=== PATIENT | male | born 1965 | race Caucasian/White ===

== ENCOUNTER 2020-06-06 08:40 | Emergency (ER) | payer SELFPAY ==
[~2020-06-06] VITALS: Ht 185.4 cm; Wt 70.3 kg
[2020-06-06 09:12] VITALS: BP 133/89
== END 2020-06-06 11:02 | disposition home or self-care (01) ==
LOC: ER 08:40
DX: J06.9 Acute upper respiratory infection, unspecified (principal)
CPT/HCPCS: 71045

== ENCOUNTER 2020-09-11 05:57 | Emergency (ER) | payer MEDICAID ==
[~2020-09-11] VITALS: Ht 180.3 cm; Wt 86.2 kg
[2020-09-11] MEDS ORDERED: SODIUM CHLORIDE 0.9% 1,000 ML IV ONE ×2 (07:00)
[2020-09-11 07:56] LABS: Basophils # (auto) 0 10 ^3/uL (0-0.2); Eosinophils # (auto) 0.1 10 ^3/uL (0-0.8); Eosinophils % (auto) 1.5 % (0.0-7.0); Hematocrit 43.2 % (41.0-53.0); Hemoglobin 14.4 g/dL (13.5-17.5); Lymphocytes # (auto) 0.5 10 ^3/uL (0.4-5.4); Lymphocytes % (auto) 12.3 % (10.0-50.0); Mean Corpuscular Hemoglobin 31.3 pg (28.0-32.0); Mean Corpuscular Hgb Conc. 33.3 g/dL (32.0-36.0); Mean Corpuscular Volume 93.9 fL (80.0-100.0); Monocytes # (auto) 0.5 10 ^3/uL (0-1.3); Neutrophils # (auto) 2.7 10 ^3/uL (1.6-8.6); Neutrophils % (auto) 71.2 % (37.0-80.0); Nucleated Red Blood Cells % 0.2 %; Platelet Count (auto) 147 10^3/uL (140-450); Red Cell Distribution Width 14.6 % (11.8-14.3); White Blood Cell 3.7 10^3/uL (4.4-10.8)
[2020-09-11 08:00] VITALS: BP 119/87
[2020-09-11 08:32] LABS: Chloride 96 mmol/L (98-107); Sodium 134 mmol/L (136-145)
[2020-09-11 08:41] LABS: Alanine Aminotransferase 238 U/L (16-61); Albumin 3.6 g/dL (3.4-5.0); Alkaline Phosphatase 66 U/L (45-117); Anion Gap 14 (5-15); Aspartate Aminotransferase 231 U/L (15-37); BUN/Creatinine Ratio 7.7; Bilirubin, Total 1.2 mg/dL (0.2-1.0); Blood Urea Nitrogen 5 mg/dL (7-18); Calcium 8.6 mg/dL (8.5-10.1); Carbon Dioxide 24 mmol/L (21-32); GFR African American 163 mL/min; GFR Non-African American 135 mL/min; Glucose 64 mg/dL (74-106); Total Protein 7.2 g/dL (6.4-8.2)
[2020-09-11 08:57] LABS: Amphetamine Screen, Urine NEGATIVE (NEGATIVE); Barbiturate Scree,Urine NEGATIVE (NEGATIVE); Benzodiazephine Screen, Urine POSITIVE (NEGATIVE); Cannabinoid Screen, Urine NEGATIVE (NEGATIVE); Cocaine Screen, Urine NEGATIVE (NEGATIVE); Opiate Scree,Urine NEGATIVE (NEGATIVE); Phencyclidine Screen, Urine NEGATIVE (NEGATIVE)
[2020-09-11 09:15] LABS: Urine Bacteria NONE SEEN /hpf (None Seen); Urine Blood Negative /uL (Negative); Urine Specific Gravity 1.006 (1.001-1.035); Urine WBC <1 /hpf (0 - 3)
== END 2020-09-11 10:08 | disposition home or self-care (01) ==
LOC: EDBD 05:57 → ER 05:57
DX: F41.9 Anxiety disorder, unspecified (principal); E86.0 Dehydration
CPT/HCPCS: 36415; 80053; 80307; 81001; 84484; 85025; 96360; 99283; J7030; 96361

== ENCOUNTER 2020-09-24 11:34 | Inpatient (IN) | payer MEDICAID ==
[~2020-09-24] VITALS: Ht 177.8 cm; Wt 69.2 kg
[2020-09-24] MEDS ORDERED: SODIUM CHLORIDE 0.9% 1,000 ML IVB ONE (13:15)
[2020-09-24 13:44] LABS: Amphetamine Screen, Urine NEGATIVE (NEGATIVE); Barbiturate Scree,Urine NEGATIVE (NEGATIVE); Benzodiazephine Screen, Urine POSITIVE (NEGATIVE); Cannabinoid Screen, Urine NEGATIVE (NEGATIVE); Cocaine Screen, Urine NEGATIVE (NEGATIVE); Opiate Scree,Urine NEGATIVE (NEGATIVE); Phencyclidine Screen, Urine NEGATIVE (NEGATIVE)
[2020-09-24 14:40] LABS: Basophils # (auto) 0 10 ^3/uL (0-0.2); Basophils % (auto) 0.3 % (0.0-2.0); Eosinophils # (auto) 0.2 10 ^3/uL (0-0.8); Eosinophils % (auto) 4.6 % (0.0-7.0); Hematocrit 43.5 % (41.0-53.0); Hemoglobin 14.8 g/dL (13.5-17.5); Lymphocytes # (auto) 0.6 10 ^3/uL (0.4-5.4); Lymphocytes % (auto) 16.3 % (10.0-50.0); Mean Corpuscular Volume 94.1 fL (80.0-100.0); Monocytes # (auto) 0.5 10 ^3/uL (0-1.3); Monocytes % (auto) 13.5 % (0.0-12.0); Neutrophils # (auto) 2.2 10 ^3/uL (1.6-8.6); Neutrophils % (auto) 65.3 % (37.0-80.0); Platelet Count (auto) 168 10^3/uL (140-450); Red Blood Cells 4.62 10^6/uL (4.5-5.90); Red Cell Distribution Width 14.1 % (11.8-14.3); White Blood Cell 3.4 10^3/uL (4.4-10.8)
[2020-09-24] MEDS ORDERED: FOLIC ACID 1 MG, MULTIPLE VITAMIN 10 ML, MAGNESIUM SULF SDV 50% 8 MEQ, THIAMINE INJ 100... INJ STA ×5 (14:53)
[2020-09-24] MEDS ORDERED: THIAMINE HCL 100 MG TAB PO ONE (15:00)
[2020-09-24 15:11] LABS: Calcium 8.5 mg/dL (8.5-10.1); Magnesium 2.2 mg/dL (1.6-2.6)
[2020-09-24 15:16] LABS: Bilirubin, Total 1.6 mg/dL (0.2-1.0); Total Protein 7.8 g/dL (6.4-8.2)
[2020-09-24] MEDS ORDERED: MORPHINE SULF INJ 2 MG/ML SYRINGE 1ML IV PRN (19:15)
[2020-09-24] MEDS ORDERED: NITROGLYCERIN 0.4 MG SL TAB SL PRN (19:15)
[2020-09-24] MEDS ORDERED: chlordiazePOXIDE HCL 25 MG CAP PO PRN (19:15)
[2020-09-25 00:16] LABS: BUN/Creatinine Ratio 8.2
[2020-09-25 00:19] LABS: Bilirubin, Total 1.9 mg/dL (0.2-1.0)
[2020-09-25 05:59] LABS: Basophils # (auto) 0 10 ^3/uL (0-0.2); Basophils % (auto) 0.5 % (0.0-2.0); Eosinophils # (auto) 0.1 10 ^3/uL (0-0.8); Eosinophils % (auto) 1.1 % (0.0-7.0); Hematocrit 42.7 % (41.0-53.0); Hemoglobin 14.3 g/dL (13.5-17.5); Lymphocytes # (auto) 0.3 10 ^3/uL (0.4-5.4); Mean Corpuscular Hemoglobin 31.5 pg (28.0-32.0); Mean Corpuscular Hgb Conc. 33.4 g/dL (32.0-36.0); Mean Corpuscular Volume 94.3 fL (80.0-100.0); Monocytes # (auto) 0.8 10 ^3/uL (0-1.3); Monocytes % (auto) 16.1 % (0.0-12.0); Neutrophils % (auto) 76.3 % (37.0-80.0); Nucleated Red Blood Cells % 0.6 %; Platelet Count (auto) 153 10^3/uL (140-450); Red Blood Cells 4.53 10^6/uL (4.5-5.90); Red Cell Distribution Width 14.3 % (11.8-14.3); White Blood Cell 5.2 10^3/uL (4.4-10.8)
[2020-09-25] MEDS: FOLIC ACID 1 MG, MULTIPLE VITAMIN 10 ML, MAGNESIUM SULF SDV 50% 8 MEQ, THIAMINE INJ 100... INJ SCH ×5 (12:00)
[2020-09-25] MEDS ORDERED: cloNIDine HCL 0.1 MG TAB PO PRN (12:15)
[2020-09-25] MEDS ORDERED: PANTOPRAZOLE 40 MG TAB PO ONE (12:15)
[2020-09-25] MEDS ORDERED: chlordiazePOXIDE HCL 25 MG CAP PO PRN (12:15)
[2020-09-25 15:00] VITALS: BP 145/84
[2020-09-25 16:00] VITALS: BP 126/82
[2020-09-25] MEDS: chlordiazePOXIDE HCL 25 MG CAP PO SCH ×2 (16:07→23:38)
[2020-09-25] MEDS: LORazepam 2MG/ML-1ML VIAL IV PRN ×4 (16:08→23:48)
--- NOTE | 2020-09-25 19:00 | NUR ---
Opening Shift Note Assumed care of patient, awake and alert. No S/S of distress/SOB or pain. Instructed on POC and to call for assist PRN, will continue to monitor for changes Q1hr and PRN. Patient in the lowest possible position with call light within reach, bed rails up x2.
[2020-09-25 20:00] VITALS: BP 126/82
[2020-09-25 22:00] VITALS: BP_SYST 110; BP_SYST 126; BP_DIAS 65; BP_DIAS 82
[2020-09-26] MEDS: LORazepam 2MG/ML-1ML VIAL IV PRN ×6 (04:04→20:02)
[2020-09-26 05:28] VITALS: BP 130/84
[2020-09-26] MEDS: chlordiazePOXIDE HCL 25 MG CAP PO SCH ×3 (05:40→17:29)
[2020-09-26 06:52] LABS: Hematocrit 41.2 % (41.0-53.0); Hemoglobin 13.7 g/dL (13.5-17.5); Mean Corpuscular Hemoglobin 31.6 pg (28.0-32.0); Mean Corpuscular Hgb Conc. 33.2 g/dL (32.0-36.0); Mean Corpuscular Volume 95.2 fL (80.0-100.0); Platelet Count (auto) 103 10^3/uL (140-450); Red Blood Cells 4.33 10^6/uL (4.5-5.90); Red Cell Distribution Width 14.5 % (11.8-14.3); White Blood Cell 2.5 10^3/uL (4.4-10.8)
[2020-09-26 07:07] LABS: INR 0.93 (0.9-1.15); Partial Thromboplastin Time 26.1 sec (23.0-31.2)
[2020-09-26 07:08] LABS: Basophils % (manual) 0 (0.0-2.0); Blast Cells 0; Myelocytes % 0; Promyelocytes % 0; Reactive Lymphocytes 0
[2020-09-26 07:20] LABS: Albumin 3.3 g/dL (3.4-5.0); BUN/Creatinine Ratio 10.4; Calcium 8.6 mg/dL (8.5-10.1); Total Protein 6.7 g/dL (6.4-8.2)
--- NOTE | 2020-09-26 07:30 | NUR ---
Opening Shift Note Assumed care of patient, awake, alert, and oriented. No S/S of distress/SOB or pain. Bed in lowest/locked position, bed rails up x2, call light within reach. Instructed on POC and to call for assist PRN. Will continue to monitor for changes Q1hr and PRN.
[2020-09-26 07:42] LABS: Band Neutrophils % (manual) 1; Eosinophils % (manual) 2 (0-7); Lymphocytes % (manual) 21 (10.0-50.0); Metamyelocytes % 1; Monocytes % (manual) 8 (0-12)
[2020-09-26] MEDS: PANTOPRAZOLE 40 MG TAB PO SCH (08:38)
[2020-09-26 09:00] VITALS: BP 128/72
--- NOTE | 2020-09-26 09:05 | NUR ---
MD ROUNDS DR YU AT BEDSIDE
[2020-09-26 13:00] VITALS: BP 138/81
[2020-09-26] MEDS: FOLIC ACID 1 MG, MULTIPLE VITAMIN 10 ML, MAGNESIUM SULF SDV 50% 8 MEQ, THIAMINE INJ 100... INJ SCH ×5 (13:14)
[2020-09-26 17:00] VITALS: BP_SYST 114; BP_SYST 165; BP_DIAS 80; BP_DIAS 94
--- NOTE | 2020-09-26 17:35 | NUR ---
Regarding patient not having PCP. Robert Jones will assist patient with a PCP.
--- NOTE | 2020-09-26 19:30 | NUR ---
Opening Shift Note Assumed care of patient, awake and alert. No S/S of distress/SOB or pain. Instructed on POC and to call for assist PRN, will continue to monitor for changes Q1hr and PRN.
[2020-09-26 20:00] VITALS: BP 119/61
[2020-09-27] MEDS: chlordiazePOXIDE HCL 25 MG CAP PO SCH ×4 (01:07→17:36)
[2020-09-27 08:06] LABS: Hematocrit 41.1 % (41.0-53.0); Hemoglobin 13.7 g/dL (13.5-17.5); Mean Corpuscular Hemoglobin 32.1 pg (28.0-32.0); Mean Corpuscular Hgb Conc. 33.3 g/dL (32.0-36.0); Mean Corpuscular Volume 96.4 fL (80.0-100.0); Platelet Count (auto) 121 10^3/uL (140-450); Red Blood Cells 4.26 10^6/uL (4.5-5.90); Red Cell Distribution Width 13.3 % (11.8-14.3); White Blood Cell 3.5 10^3/uL (4.4-10.8)
[2020-09-27 08:20] LABS: Basophils % (manual) 0 (0.0-2.0); Blast Cells 0; Metamyelocytes % 0; Myelocytes % 0; Promyelocytes % 0; Reactive Lymphocytes 0
[2020-09-27 08:28] VITALS: BP 116/72
[2020-09-27 08:30] LABS: Potassium 3.6 mmol/L (3.5-5.1)
[2020-09-27 08:37] LABS: BUN/Creatinine Ratio 11.5; Calcium 8.7 mg/dL (8.5-10.1)
--- NOTE | 2020-09-27 09:22 | NUR ---
MD ROUNDS DR YU AT BEDSIDE. NEW ORDERS RECEIVED/WILL CARRY OUT. WILL CONTINUE TO MONITOR
[2020-09-27] MEDS: PANTOPRAZOLE 40 MG TAB PO SCH (09:43)
[2020-09-27] MEDS: LORazepam 2MG/ML-1ML VIAL IV PRN ×4 (09:44→21:09)
[2020-09-27] MEDS: FOLIC ACID 1 MG, MULTIPLE VITAMIN 10 ML, MAGNESIUM SULF SDV 50% 8 MEQ, THIAMINE INJ 100... INJ SCH ×5 (11:52)
--- NOTE | 2020-09-27 12:19 | NUR ---
Nutrition Assessment Notes PLEASE SEE ATTACHED LINK FOR COMPLETE ASSESSMENT Est Energy needs BW 69 [id number] kcals (25-30 kcal/kgBW), Est Protein needs: 69-82 gms/day (1.0-1.2 gm/kgBW) Will continue to monitor and reassess prn. Addendum: 09/27/20 at [address] Amended: Links added.
[2020-09-27 12:20] LABS: Band Neutrophils % (manual) 1
[2020-09-27 12:21] LABS: Eosinophils % (manual) 6 (0-7); Lymphocytes % (manual) 12 (10.0-50.0); Monocytes % (manual) 14 (0-12)
[2020-09-27 12:50] VITALS: BP 111/72
[2020-09-27] MEDS ORDERED: DOCUSATE SOD 100 MG CAP PO PRN (15:00)
[2020-09-27 16:26] VITALS: BP 110/74
[2020-09-27 21:42] VITALS: BP 129/80
[2020-09-28] MEDS: LORazepam 2MG/ML-1ML VIAL IV PRN ×6 (00:08→22:18)
[2020-09-28] MEDS: chlordiazePOXIDE HCL 25 MG CAP PO SCH ×5 (00:08→23:51)
[2020-09-28 05:19] VITALS: BP 113/68
[2020-09-28 05:33] LABS: Hematocrit 38.3 % (41.0-53.0); Mean Corpuscular Hemoglobin 32.2 pg (28.0-32.0); Mean Corpuscular Hgb Conc. 33.9 g/dL (32.0-36.0); Mean Corpuscular Volume 95.1 fL (80.0-100.0); Platelet Count (auto) 121 10^3/uL (140-450); Red Blood Cells 4.03 10^6/uL (4.5-5.90); Red Cell Distribution Width 13.8 % (11.8-14.3); White Blood Cell 3.2 10^3/uL (4.4-10.8)
[2020-09-28 05:43] LABS: Basophils % (manual) 0 (0.0-2.0); Blast Cells 0; Metamyelocytes % 0; Myelocytes % 0; Promyelocytes % 0; Reactive Lymphocytes 0
[2020-09-28 06:13] LABS: Band Neutrophils % (manual) 5; Eosinophils % (manual) 8 (0-7); Lymphocytes % (manual) 21 (10.0-50.0); Monocytes % (manual) 19 (0-12)
--- NOTE | 2020-09-28 08:37 | NUR ---
Ativan Verbal order received from Dr. Zamudio to change Ativan to Q6HP. Same read back, verified and entered in eMAR.
[2020-09-28 09:37] VITALS: BP 102/60
[2020-09-28] MEDS: PANTOPRAZOLE 40 MG TAB PO SCH (09:50)
[2020-09-28] MEDS: FOLIC ACID 1 MG, MULTIPLE VITAMIN 10 ML, MAGNESIUM SULF SDV 50% 8 MEQ, THIAMINE INJ 100... INJ SCH ×5 (12:03)
[2020-09-28 13:01] VITALS: BP 119/77
[2020-09-28 16:41] VITALS: BP 113/75
[2020-09-28 21:00] VITALS: BP 136/85
[2020-09-29] MEDS: LORazepam 2MG/ML-1ML VIAL IV PRN (04:16)
[2020-09-29 05:00] VITALS: BP 118/72
[2020-09-29 05:24] LABS: White Blood Cell 2.9 10^3/uL (4.4-10.8)
[2020-09-29 05:32] LABS: Hematocrit 39.4 % (41.0-53.0); Mean Corpuscular Hemoglobin 31.7 pg (28.0-32.0); Platelet Count (auto) 125 10^3/uL (140-450); Red Cell Distribution Width 13.8 % (11.8-14.3)
[2020-09-29 05:37] LABS: Basophils % (manual) 0 (0.0-2.0); Blast Cells 0; Metamyelocytes % 0; Myelocytes % 0; Promyelocytes % 0; Reactive Lymphocytes 0
[2020-09-29] MEDS: chlordiazePOXIDE HCL 25 MG CAP PO SCH (05:46)
[2020-09-29 06:48] LABS: Band Neutrophils % (manual) 2; Eosinophils % (manual) 8 (0-7); Lymphocytes % (manual) 16 (10.0-50.0); Monocytes % (manual) 16 (0-12)
[2020-09-29] MEDS: PANTOPRAZOLE 40 MG TAB PO SCH (09:22)
[2020-09-29 10:21] VITALS: BP 100/68
--- NOTE | 2020-09-29 11:20 | NUR ---
Discharge instructions given as ordered. Encourage to follow up with tere on10/01/20 at 1230, follow up with [facility] ON 10/07/2020 AT 1130 as instructed. All questions and concerns addressed. Patient verbalized understanding. Medication reconciliation form completed and copy given to patient. IV removed with catheter intact, pressure dressing applied. Pt instructed to pear picker his prescription at [facility]. Patient taken to vehicle via wheelchair with all personal belongings, accompanied by staff and family member. No distress noted at time of departure.
== END 2020-09-29 11:20 | disposition home or self-care (01) | DRG 775 ==
LOC: ER 11:34 → OVERFLOW 19:02 → TELE-WESTW 09-25 18:40 → WEST WING 09-28 20:48
PROVIDERS: ADMIT Nurse Practitioner Acute Care; ATTEND Internal Medicine
DX: F10.231 Alcohol dependence with withdrawal delirium (principal); F13.239 Sedative, hypnotic or anxiolytic dependence with withdrawal, unspecified; E87.1 Hypo-osmolality and hyponatremia; F10.229 Alcohol dependence with intoxication, unspecified; K74.60 Unspecified cirrhosis of liver; K70.9 Alcoholic liver disease, unspecified; K76.0 Fatty (change of) liver, not elsewhere classified; F41.9 Anxiety disorder, unspecified; R79.89 Other specified abnormal findings of blood chemistry; Y90.8 Blood alcohol level of 240 mg/100 ml or more
CPT/HCPCS: 36415; 71045; 76705; 80048; 80053; 80074; 80307; 80320; 83735; 85007; 85025; 85027; 85610; 85730; G0378

== ENCOUNTER 2020-12-03 04:13 | Inpatient (IN) | payer MEDICAID ==
[~2020-12-03] VITALS: Ht 182.9 cm; Wt 69.7 kg
[2020-12-03 07:07] LABS: Basophils # (auto) 0 10 ^3/uL (0-0.2); Basophils % (auto) 0.8 % (0.0-2.0); Eosinophils # (auto) 0 10 ^3/uL (0-0.8); Eosinophils % (auto) 1.1 % (0.0-7.0); Hematocrit 43.8 % (41.0-53.0); Hemoglobin 15.1 g/dL (13.5-17.5); Lymphocytes # (auto) 0.3 10 ^3/uL (0.4-5.4); Lymphocytes % (auto) 6.9 % (10.0-50.0); Mean Corpuscular Hemoglobin 33.2 pg (28.0-32.0); Mean Corpuscular Hgb Conc. 34.4 g/dL (32.0-36.0); Mean Corpuscular Volume 96.6 fL (80.0-100.0); Monocytes # (auto) 0.4 10 ^3/uL (0-1.3); Monocytes % (auto) 9.5 % (0.0-12.0); Neutrophils # (auto) 3.4 10 ^3/uL (1.6-8.6); Neutrophils % (auto) 81.7 % (37.0-80.0); Nucleated Red Blood Cells % 0.2 %; Red Blood Cells 4.54 10^6/uL (4.5-5.90); Red Cell Distribution Width 13.8 % (11.8-14.3); White Blood Cell 4.2 10^3/uL (4.4-10.8)
[2020-12-03 07:09] LABS: Albumin 3.9 g/dL (3.4-5.0); Calcium 8.7 mg/dL (8.5-10.1); Potassium 4.1 mmol/L (3.5-5.1)
[2020-12-03 07:12] LABS: Bilirubin, Total 2.2 mg/dL (0.2-1.0); Total Protein 7.6 g/dL (6.4-8.2)
[2020-12-03] MEDS ORDERED: LORazepam 2MG/ML-1ML VIAL IV ONE (07:45)
[2020-12-03] MEDS ORDERED: SODIUM CHLORIDE 0.9% 1,000 ML IV ONE (07:45)
[2020-12-03] MEDS ORDERED: THIAMINE INJ 100 MG in SODIUM CHLORIDE 0.9% 1,000 ML IV ONE (07:45)
[2020-12-03 08:56] LABS: Basophils # (auto) 0 10 ^3/uL (0-0.2); Basophils % (auto) 0.7 % (0.0-2.0); Eosinophils # (auto) 0 10 ^3/uL (0-0.8); Eosinophils % (auto) 0.9 % (0.0-7.0); Hematocrit 41.2 % (41.0-53.0); Hemoglobin 14.2 g/dL (13.5-17.5); Lymphocytes # (auto) 0.3 10 ^3/uL (0.4-5.4); Lymphocytes % (auto) 7.9 % (10.0-50.0); Mean Corpuscular Hemoglobin 32.9 pg (28.0-32.0); Mean Corpuscular Hgb Conc. 34.4 g/dL (32.0-36.0); Mean Corpuscular Volume 95.5 fL (80.0-100.0); Monocytes # (auto) 0.4 10 ^3/uL (0-1.3); Monocytes % (auto) 9.4 % (0.0-12.0); Neutrophils # (auto) 3.3 10 ^3/uL (1.6-8.6); Neutrophils % (auto) 81.1 % (37.0-80.0); Red Blood Cells 4.31 10^6/uL (4.5-5.90); Red Cell Distribution Width 13.6 % (11.8-14.3)
[2020-12-03 09:17] LABS: Albumin 3.6 g/dL (3.4-5.0); Calcium 8.4 mg/dL (8.5-10.1); Potassium 4.2 mmol/L (3.5-5.1)
[2020-12-03 09:20] LABS: BUN/Creatinine Ratio 3.4; Total Protein 7.3 g/dL (6.4-8.2)
[2020-12-03 09:44] LABS: Acetaminophen < 2.0 ug/mL (10-30); Salicylate < 1.7 mg/dL (2.8-20.0)
[2020-12-03] MEDS ORDERED: ONDANSETRON HCL 4 MG/2 ML VIAL IV PRN (12:15)
[2020-12-03] MEDS ORDERED: MORPHINE SULFATE INJECTION 2 MG/ML SYRG IV PRN ×2 (12:15)
[2020-12-03] MEDS ORDERED: LORazepam 2MG/ML-1ML VIAL IV PRN (12:15)
[2020-12-03] MEDS ORDERED: ACETAMINOPHEN 325 MG TAB PO PRN (12:15)
[2020-12-03] MEDS ORDERED: HYDROcodone-ACET 5/325MG TAB PO PRN (12:15)
[2020-12-03] MEDS ORDERED: NITROGLYCERIN 0.4 MG SL TAB SL PRN (12:15)
[2020-12-03] MEDS: D5W/SOD CHLO 0.9% 1,000 ML IV SCH ×2 (12:41→22:20)
[2020-12-03] MEDS: LORazepam 2MG/ML-1ML VIAL IV PRN ×2 (12:41→18:50)
[2020-12-03 13:35] LABS: Urine Bacteria NONE SEEN /hpf (None Seen); Urine Blood Negative /uL (Negative); Urine Mucus FEW (None Seen); Urine Specific Gravity 1.009 (1.001-1.035); Urine WBC <1 /hpf (0 - 3)
[2020-12-03 15:32] LABS: Amphetamine Screen, Urine NEGATIVE (NEGATIVE); Barbiturate Scree,Urine NEGATIVE (NEGATIVE); Benzodiazephine Screen, Urine POSITIVE (NEGATIVE); Cannabinoid Screen, Urine NEGATIVE (NEGATIVE); Cocaine Screen, Urine NEGATIVE (NEGATIVE); Opiate Scree,Urine NEGATIVE (NEGATIVE); Phencyclidine Screen, Urine NEGATIVE (NEGATIVE)
[2020-12-03] MEDS: chlordiazePOXIDE HCL 25 MG CAP PO SCH (18:03)
[2020-12-04] MEDS: chlordiazePOXIDE HCL 25 MG CAP PO SCH ×5 (00:12→23:49)
[2020-12-04] MEDS: LORazepam 2MG/ML-1ML VIAL IV PRN ×4 (01:38→20:58)
[2020-12-04 07:29] LABS: Basophils # (auto) 0 10 ^3/uL (0-0.2); Basophils % (auto) 1.2 % (0.0-2.0); Eosinophils # (auto) 0 10 ^3/uL (0-0.8); Eosinophils % (auto) 1.6 % (0.0-7.0); Hematocrit 38.1 % (41.0-53.0); Hemoglobin 13.1 g/dL (13.5-17.5); Lymphocytes # (auto) 0.2 10 ^3/uL (0.4-5.4); Lymphocytes % (auto) 8.2 % (10.0-50.0); Mean Corpuscular Hemoglobin 33.1 pg (28.0-32.0); Mean Corpuscular Hgb Conc. 34.4 g/dL (32.0-36.0); Monocytes # (auto) 0.5 10 ^3/uL (0-1.3); Neutrophils # (auto) 2.2 10 ^3/uL (1.6-8.6); Red Blood Cells 3.97 10^6/uL (4.5-5.90); Red Cell Distribution Width 13.4 % (11.8-14.3)
[2020-12-04 07:41] LABS: Calcium 8.3 mg/dL (8.5-10.1); Potassium 3.8 mmol/L (3.5-5.1)
[2020-12-04 07:45] LABS: BUN/Creatinine Ratio 6.9
[2020-12-04] MEDS: D5W/SOD CHLO 0.9% 1,000 ML IV SCH ×2 (08:25→17:26)
[2020-12-04] MEDS: MULTIPLE VITAMIN TAB PO SCH (09:34)
[2020-12-04] MEDS: FOLIC ACID 1 MG TAB PO SCH (09:34)
[2020-12-04] MEDS: PANTOPRAZOLE 40 MG TAB PO SCH (09:34)
[2020-12-04] MEDS: THIAMINE HCL 100 MG TAB PO SCH (09:34)
[2020-12-04 16:00] VITALS: BP 109/71
[2020-12-04 16:56] VITALS: BP 139/57
[2020-12-04 20:00] VITALS: BP 127/85
[2020-12-04 22:00] VITALS: BP 127/85
[2020-12-05] MEDS: LORazepam 2MG/ML-1ML VIAL IV PRN ×3 (03:35→16:30)
[2020-12-05] MEDS: D5W/SOD CHLO 0.9% 1,000 ML IV SCH ×2 (04:15→15:38)
[2020-12-05 05:00] VITALS: BP 124/78
[2020-12-05] MEDS: chlordiazePOXIDE HCL 25 MG CAP PO SCH ×3 (05:53→18:04)
[2020-12-05 08:55] VITALS: BP 130/81
[2020-12-05] MEDS: FOLIC ACID 1 MG TAB PO SCH (10:26)
[2020-12-05] MEDS: MULTIPLE VITAMIN TAB PO SCH (10:26)
[2020-12-05] MEDS: THIAMINE HCL 100 MG TAB PO SCH (10:26)
[2020-12-05] MEDS: PANTOPRAZOLE 40 MG TAB PO SCH (10:27)
[2020-12-05 12:45] VITALS: BP 119/70
[2020-12-05 17:35] VITALS: BP 142/93
[2020-12-05 19:20] LABS: Basophils # (auto) 0 10 ^3/uL (0-0.2); Basophils % (auto) 0.7 % (0.0-2.0); Eosinophils # (auto) 0.1 10 ^3/uL (0-0.8); Eosinophils % (auto) 3.6 % (0.0-7.0); Hematocrit 38.9 % (41.0-53.0); Hemoglobin 13.2 g/dL (13.5-17.5); Lymphocytes # (auto) 0.5 10 ^3/uL (0.4-5.4); Lymphocytes % (auto) 14.1 % (10.0-50.0); Mean Corpuscular Hemoglobin 33.1 pg (28.0-32.0); Mean Corpuscular Volume 97.3 fL (80.0-100.0); Monocytes # (auto) 0.5 10 ^3/uL (0-1.3); Monocytes % (auto) 15.3 % (0.0-12.0); Neutrophils # (auto) 2.3 10 ^3/uL (1.6-8.6); Neutrophils % (auto) 66.3 % (37.0-80.0); Red Cell Distribution Width 13.3 % (11.8-14.3); White Blood Cell 3.4 10^3/uL (4.4-10.8)
[2020-12-05 19:31] LABS: Albumin 3.3 g/dL (3.4-5.0); Calcium 8.6 mg/dL (8.5-10.1); Potassium 3.6 mmol/L (3.5-5.1)
[2020-12-05 19:34] LABS: BUN/Creatinine Ratio 6.1; Total Protein 6.7 g/dL (6.4-8.2)
[2020-12-05 20:00] VITALS: BP 108/70
[2020-12-05 22:00] VITALS: BP 108/70
[2020-12-06] MEDS: chlordiazePOXIDE HCL 25 MG CAP PO SCH ×5 (00:02→23:54)
[2020-12-06] MEDS: LORazepam 2MG/ML-1ML VIAL IV PRN ×4 (00:07→21:27)
[2020-12-06] MEDS: D5W/SOD CHLO 0.9% 1,000 ML IV SCH ×2 (00:15→13:33)
[2020-12-06 05:00] VITALS: BP 112/75
[2020-12-06 07:16] LABS: Basophils # (auto) 0 10 ^3/uL (0-0.2); Basophils % (auto) 0.8 % (0.0-2.0); Eosinophils # (auto) 0.1 10 ^3/uL (0-0.8); Eosinophils % (auto) 3.6 % (0.0-7.0); Hematocrit 38.3 % (41.0-53.0); Hemoglobin 13.1 g/dL (13.5-17.5); Lymphocytes # (auto) 0.3 10 ^3/uL (0.4-5.4); Lymphocytes % (auto) 11.1 % (10.0-50.0); Mean Corpuscular Hemoglobin 33.1 pg (28.0-32.0); Mean Corpuscular Hgb Conc. 34.3 g/dL (32.0-36.0); Mean Corpuscular Volume 96.6 fL (80.0-100.0); Monocytes # (auto) 0.5 10 ^3/uL (0-1.3); Monocytes % (auto) 15.7 % (0.0-12.0); Neutrophils # (auto) 2.2 10 ^3/uL (1.6-8.6); Neutrophils % (auto) 68.8 % (37.0-80.0); Red Blood Cells 3.97 10^6/uL (4.5-5.90); Red Cell Distribution Width 13.3 % (11.8-14.3); White Blood Cell 3.1 10^3/uL (4.4-10.8)
[2020-12-06 07:46] LABS: Potassium 3.5 mmol/L (3.5-5.1)
[2020-12-06 07:54] LABS: Albumin 3.2 g/dL (3.4-5.0); BUN/Creatinine Ratio 8.3; Bilirubin, Total 1.8 mg/dL (0.2-1.0); Calcium 8.3 mg/dL (8.5-10.1); Total Protein 6.8 g/dL (6.4-8.2)
[2020-12-06 09:00] VITALS: BP 114/81
[2020-12-06] MEDS: MULTIPLE VITAMIN TAB PO SCH (09:03)
[2020-12-06] MEDS: FOLIC ACID 1 MG TAB PO SCH (09:04)
[2020-12-06] MEDS: PANTOPRAZOLE 40 MG TAB PO SCH (09:04)
[2020-12-06] MEDS: THIAMINE HCL 100 MG TAB PO SCH (09:04)
[2020-12-06 13:00] VITALS: BP 126/84
[2020-12-06 17:00] VITALS: BP 136/82
[2020-12-06 22:00] VITALS: BP 127/80
[2020-12-07] MEDS: LORazepam 2MG/ML-1ML VIAL IV PRN ×4 (03:51→22:02)
[2020-12-07] MEDS: D5W/SOD CHLO 0.9% 1,000 ML IV SCH ×3 (03:54→16:15)
[2020-12-07 05:00] VITALS: BP 104/68
[2020-12-07] MEDS: chlordiazePOXIDE HCL 25 MG CAP PO SCH ×4 (06:09→23:59)
[2020-12-07 07:38] LABS: Potassium 3.5 mmol/L (3.5-5.1)
[2020-12-07 07:42] LABS: Albumin 3.1 g/dL (3.4-5.0); BUN/Creatinine Ratio 11.1; Calcium 8.6 mg/dL (8.5-10.1)
[2020-12-07 07:45] LABS: Bilirubin, Total 1.3 mg/dL (0.2-1.0); Total Protein 6.3 g/dL (6.4-8.2)
[2020-12-07 08:00] VITALS: BP 112/66
[2020-12-07 08:06] LABS: Immunoglobulin G, Serum 1008 mg/dL (603-1613)
[2020-12-07] MEDS: FOLIC ACID 1 MG TAB PO SCH (09:12)
[2020-12-07] MEDS: PANTOPRAZOLE 40 MG TAB PO SCH (09:13)
[2020-12-07] MEDS: MULTIPLE VITAMIN TAB PO SCH (09:13)
[2020-12-07] MEDS: THIAMINE HCL 100 MG TAB PO SCH (09:13)
[2020-12-07 13:00] VITALS: BP 115/73
[2020-12-07 16:16] VITALS: BP 128/74
[2020-12-07 21:12] VITALS: BP 122/78
[2020-12-08] MEDS: D5W/SOD CHLO 0.9% 1,000 ML IV SCH ×2 (02:15→12:02)
[2020-12-08] MEDS: LORazepam 2MG/ML-1ML VIAL IV PRN (04:12)
[2020-12-08] MEDS: chlordiazePOXIDE HCL 25 MG CAP PO SCH ×2 (06:00→12:07)
[2020-12-08 06:23] VITALS: BP 119/77
[2020-12-08 07:18] LABS: Albumin 3.1 g/dL (3.4-5.0); Calcium 8.5 mg/dL (8.5-10.1); Potassium 3.6 mmol/L (3.5-5.1)
[2020-12-08 07:21] LABS: BUN/Creatinine Ratio 12.5
[2020-12-08 07:23] LABS: Bilirubin, Total 0.9 mg/dL (0.2-1.0); Total Protein 6.3 g/dL (6.4-8.2)
[2020-12-08 09:00] VITALS: BP 118/79
[2020-12-08] MEDS: MULTIPLE VITAMIN TAB PO SCH (10:07)
[2020-12-08] MEDS: PANTOPRAZOLE 40 MG TAB PO SCH (10:07)
[2020-12-08] MEDS: THIAMINE HCL 100 MG TAB PO SCH (10:08)
[2020-12-08] MEDS: FOLIC ACID 1 MG TAB PO SCH (10:08)
[2020-12-08 12:49] VITALS: BP 117/71
[2020-12-08 13:27] VITALS: BP 117/71
== END 2020-12-08 14:15 | disposition home or self-care (01) | DRG 775 ==
LOC: EDBD 04:13 → ER 04:16 → TELE 04:17 → TELE-CENTR 12-04 15:53
PROVIDERS: ADMIT Nurse Practitioner Acute Care; ATTEND Family Medicine
DX: F10.121 Alcohol abuse with intoxication delirium (principal); F10.131 Alcohol abuse with withdrawal delirium; E86.0 Dehydration; F41.9 Anxiety disorder, unspecified; F13.20 Sedative, hypnotic or anxiolytic dependence, uncomplicated; K70.9 Alcoholic liver disease, unspecified; G62.9 Polyneuropathy, unspecified; F41.0 Panic disorder [episodic paroxysmal anxiety]; Z20.822 Contact with and (suspected) exposure to COVID-19; Z81.8 Family history of other mental and behavioral disorders; Z87.891 Personal history of nicotine dependence; Y90.6 Blood alcohol level of 120-199 mg/100 ml; G92 Toxic encephalopathy
CPT/HCPCS: 36415; 70551; 80048; 80053; 80307; 80320; 80329; 81001; 82784; 83036; 83735; 85025; 86334; 87081; 87426; 97116; G0378; J7042

== ENCOUNTER 2021-01-09 21:08 | Inpatient (IN) | payer MEDICAID ==
[~2021-01-09] VITALS: Ht 182.9 cm; Wt 68.4 kg
[2021-01-09 22:54] LABS: Basophils # (auto) 0 10 ^3/uL (0-0.2); Basophils % (auto) 0.9 % (0.0-2.0); Eosinophils # (auto) 0.1 10 ^3/uL (0-0.8); Hematocrit 36.7 % (41.0-53.0); Hemoglobin 12.6 g/dL (13.5-17.5); Mean Corpuscular Hemoglobin 32.6 pg (28.0-32.0); Mean Corpuscular Hgb Conc. 34.3 g/dL (32.0-36.0); Mean Corpuscular Volume 94.9 fL (80.0-100.0); Monocytes # (auto) 0.7 10 ^3/uL (0-1.3); Monocytes % (auto) 13.3 % (0.0-12.0); Neutrophils # (auto) 3.2 10 ^3/uL (1.6-8.6); Neutrophils % (auto) 63.8 % (37.0-80.0); Platelet Count (auto) 440 10^3/uL (140-450); Red Blood Cells 3.87 10^6/uL (4.5-5.90); Red Cell Distribution Width 12.7 % (11.8-14.3); White Blood Cell 5.1 10^3/uL (4.4-10.8)
[2021-01-09 23:08] LABS: Alanine Aminotransferase 73 U/L (16-61); Albumin 3.8 g/dL (3.4-5.0); Anion Gap 11 (5-15); Blood Alcohol < 3.0 mg/dL (0-5); Blood Urea Nitrogen 5 mg/dL (7-18); Calcium 8.8 mg/dL (8.5-10.1); Carbon Dioxide 23 mmol/L (21-32); Chloride 102 mmol/L (98-107); Glucose 82 mg/dL (74-106); Magnesium 2.2 mg/dL (1.6-2.6); Potassium 3.4 mmol/L (3.5-5.1); Sodium 136 mmol/L (136-145)
[2021-01-09 23:11] LABS: Alkaline Phosphatase 64 U/L (45-117); Aspartate Aminotransferase 38 U/L (15-37); BUN/Creatinine Ratio 7.1; Bilirubin, Total 1.1 mg/dL (0.2-1.0); GFR African American 149 mL/min; GFR Non-African American 124 mL/min; Total Protein 7.7 g/dL (6.4-8.2)
[2021-01-09] MEDS ORDERED: LORazepam 2MG/ML-1ML VIAL IV ONE (23:30)
[2021-01-10] MEDS ORDERED: HALOPERIDOL LACTATE 5 MG/ML INJ VIAL IM ONE (03:15)
[2021-01-10 04:08] LABS: Urine Bacteria NONE SEEN /hpf (None Seen); Urine Blood Negative /uL (Negative); Urine Specific Gravity 1.005 (1.001-1.035); Urine WBC <1 /hpf (0 - 3)
[2021-01-10] MEDS ORDERED: DOCUSATE SOD 100 MG CAP PO PRN (04:15)
[2021-01-10] MEDS ORDERED: NITROGLYCERIN 0.4 MG SL TAB SL PRN (04:15)
[2021-01-10] MEDS ORDERED: ONDANSETRON HCL 4 MG/2 ML VIAL IV PRN (04:15)
[2021-01-10] MEDS ORDERED: HYDROcodone-ACET 5/325MG TAB PO PRN (04:15)
[2021-01-10] MEDS ORDERED: MORPHINE SULF INJ 2 MG/ML SYRINGE 1ML IV PRN (04:15)
[2021-01-10] MEDS ORDERED: POTASSIUM CHL 20 Meq TABLET PO ONE (04:15)
[2021-01-10] MEDS ORDERED: ACETAMINOPHEN 325 MG TAB PO PRN (04:15)
[2021-01-10 04:23] LABS: Alcohol, Urine < 3.0 mg/dL (0-10); Amphetamine Screen, Urine NEGATIVE (NEGATIVE); Barbiturate Scree,Urine NEGATIVE (NEGATIVE); Benzodiazephine Screen, Urine POSITIVE (NEGATIVE); Cannabinoid Screen, Urine NEGATIVE (NEGATIVE); Cocaine Screen, Urine NEGATIVE (NEGATIVE); Opiate Scree,Urine NEGATIVE (NEGATIVE); Phencyclidine Screen, Urine NEGATIVE (NEGATIVE)
[2021-01-10] MEDS ORDERED: FOLIC ACID 1 MG, MULTIPLE VITAMIN 10 ML, MAGNESIUM SULF SDV 50% 8 MEQ, THIAMINE INJ 100... INJ ONE ×5 (04:30)
[2021-01-10 06:49] LABS: Basophils # (auto) 0.1 10 ^3/uL (0-0.2); Basophils % (auto) 2.5 % (0.0-2.0); Eosinophils # (auto) 0.1 10 ^3/uL (0-0.8); Eosinophils % (auto) 3.4 % (0.0-7.0); Hematocrit 35.2 % (41.0-53.0); Hemoglobin 11.9 g/dL (13.5-17.5); Lymphocytes # (auto) 0.9 10 ^3/uL (0.4-5.4); Lymphocytes % (auto) 24.4 % (10.0-50.0); Mean Corpuscular Hemoglobin 31.9 pg (28.0-32.0); Mean Corpuscular Hgb Conc. 33.7 g/dL (32.0-36.0); Mean Corpuscular Volume 94.7 fL (80.0-100.0); Monocytes # (auto) 0.6 10 ^3/uL (0-1.3); Monocytes % (auto) 16.7 % (0.0-12.0); Nucleated Red Blood Cells % 0.1 %; Platelet Count (auto) 406 10^3/uL (140-450); Red Blood Cells 3.72 10^6/uL (4.5-5.90); Red Cell Distribution Width 12.4 % (11.8-14.3); White Blood Cell 3.7 10^3/uL (4.4-10.8)
[2021-01-10 07:07] LABS: Potassium 3.7 mmol/L (3.5-5.1)
[2021-01-10 07:14] LABS: Albumin 3.3 g/dL (3.4-5.0); BUN/Creatinine Ratio 7.6; Bilirubin, Total 1.2 mg/dL (0.2-1.0); Calcium 8.5 mg/dL (8.5-10.1); Total Protein 6.6 g/dL (6.4-8.2)
[2021-01-10] MEDS ORDERED: THIAMINE HCL 100 MG TAB PO SCH (10:00)
[2021-01-10] MEDS ORDERED: MULTIPLE VITAMIN TAB PO SCH (10:00)
[2021-01-10] MEDS: FAMOTIDINE 20 MG TAB PO SCH ×2 (11:12→22:00)
[2021-01-10] MEDS: MULTIPLE VITAMIN TAB PO SCH (11:12)
[2021-01-10] MEDS: ASCORBIC ACID 500 MG TAB PO SCH ×2 (11:12→22:51)
[2021-01-10] MEDS: FOLIC ACID 1 MG TAB PO SCH (11:13)
[2021-01-10] MEDS: ENOXAPARIN SOD 40 MG/0.4 ML SYRINGE SC SCH (11:13)
[2021-01-10] MEDS: ZINC SULFATE 220mg CAP or TAB PO SCH (11:13)
[2021-01-10] MEDS ORDERED: GABA300C10 PO (11:15)
[2021-01-10] MEDS: LORazepam 2MG/ML-1ML VIAL IV PRN ×2 (11:38→22:51)
[2021-01-10 12:41] VITALS: BP 120/76
[2021-01-10] MEDS: chlordiazePOXIDE HCL 5 MG CAP PO PRN ×2 (14:52→18:40)
[2021-01-10 16:43] VITALS: BP 123/79
[2021-01-10 22:00] VITALS: BP 127/77
[2021-01-10] MEDS: AMITRIPTYLINE HCL 10 MG TAB PO SCH (22:00)
[2021-01-11] MEDS: chlordiazePOXIDE HCL 5 MG CAP PO PRN ×2 (00:12→04:12)
[2021-01-11] MEDS: LORazepam 2MG/ML-1ML VIAL IV PRN (03:45)
[2021-01-11 05:00] VITALS: BP 119/69
[2021-01-11 05:40] LABS: Basophils # (auto) 0.1 10 ^3/uL (0-0.2); Basophils % (auto) 2.2 % (0.0-2.0); Eosinophils # (auto) 0.1 10 ^3/uL (0-0.8); Eosinophils % (auto) 3.8 % (0.0-7.0); Hemoglobin 12.1 g/dL (13.5-17.5); Lymphocytes # (auto) 0.8 10 ^3/uL (0.4-5.4); Lymphocytes % (auto) 22.6 % (10.0-50.0); Mean Corpuscular Hemoglobin 33.5 pg (28.0-32.0); Mean Corpuscular Hgb Conc. 35.6 g/dL (32.0-36.0); Monocytes # (auto) 0.5 10 ^3/uL (0-1.3); Monocytes % (auto) 14.8 % (0.0-12.0); Neutrophils # (auto) 2.1 10 ^3/uL (1.6-8.6); Neutrophils % (auto) 56.6 % (37.0-80.0); Platelet Count (auto) 356 10^3/uL (140-450); Red Blood Cells 3.61 10^6/uL (4.5-5.90); Red Cell Distribution Width 12.2 % (11.8-14.3); White Blood Cell 3.6 10^3/uL (4.4-10.8)
[2021-01-11 06:13] LABS: Potassium 3.7 mmol/L (3.5-5.1)
[2021-01-11 06:17] LABS: Albumin 3.1 g/dL (3.4-5.0); BUN/Creatinine Ratio 8.6; Calcium 8.4 mg/dL (8.5-10.1)
[2021-01-11 06:23] LABS: Bilirubin, Total 0.8 mg/dL (0.2-1.0); Total Protein 6.4 g/dL (6.4-8.2)
[2021-01-11 08:37] VITALS: BP 111/84
[2021-01-11] MEDS ORDERED: CYANOCOBALAMIN 500 MCG TAB PO SCH (10:00)
[2021-01-11] MEDS ORDERED: THIAMINE HCL 100 MG TAB PO SCH (10:00)
[2021-01-11] MEDS ORDERED: FOLIC ACID 1 MG, MULTIPLE VITAMIN 10 ML, MAGNESIUM SULF SDV 50% 8 MEQ, THIAMINE INJ 100... INJ SCH ×5 (12:00)
[2021-01-11] MEDS: THIAMINE HCL 100 MG TAB PO SCH (12:17)
[2021-01-11] MEDS: ASCORBIC ACID 500 MG TAB PO SCH ×2 (12:17→22:14)
[2021-01-11] MEDS: FOLIC ACID 1 MG TAB PO SCH (12:17)
[2021-01-11] MEDS: ZINC SULFATE 220mg CAP or TAB PO SCH (12:18)
[2021-01-11] MEDS: FAMOTIDINE 20 MG TAB PO SCH ×2 (12:18→22:14)
[2021-01-11] MEDS: MULTIPLE VITAMIN TAB PO SCH (12:18)
[2021-01-11 12:40] VITALS: BP 136/79
[2021-01-11] MEDS: ENOXAPARIN SOD 40 MG/0.4 ML SYRINGE SC SCH (13:23)
[2021-01-11] MEDS ORDERED: chlordiazePOXIDE HCL 5 MG CAP PO SCH ×2 (14:00)
[2021-01-11 16:45] VITALS: BP 117/88
[2021-01-11] MEDS ORDERED: TEMAZEPAM 15 MG CAP PO PRN (20:45)
[2021-01-11] MEDS: AMITRIPTYLINE HCL 10 MG TAB PO SCH (21:38)
[2021-01-11 22:00] VITALS: BP 120/87
[2021-01-11] MEDS: chlordiazePOXIDE HCL 5 MG CAP PO SCH (22:14)
[2021-01-12 05:00] VITALS: BP 123/89
[2021-01-12] MEDS: chlordiazePOXIDE HCL 5 MG CAP PO SCH ×3 (05:54→17:38)
[2021-01-12 06:56] LABS: Basophils # (auto) 0.1 10 ^3/uL (0-0.2); Basophils % (auto) 1.2 % (0.0-2.0); Eosinophils # (auto) 0.1 10 ^3/uL (0-0.8); Eosinophils % (auto) 2.8 % (0.0-7.0); Hematocrit 36.4 % (41.0-53.0); Hemoglobin 12.8 g/dL (13.5-17.5); Lymphocytes # (auto) 0.8 10 ^3/uL (0.4-5.4); Lymphocytes % (auto) 17.5 % (10.0-50.0); Mean Corpuscular Hemoglobin 32.9 pg (28.0-32.0); Mean Corpuscular Volume 93.8 fL (80.0-100.0); Monocytes # (auto) 0.6 10 ^3/uL (0-1.3); Monocytes % (auto) 12.5 % (0.0-12.0); Platelet Count (auto) 380 10^3/uL (140-450); Red Blood Cells 3.89 10^6/uL (4.5-5.90); Red Cell Distribution Width 12.4 % (11.8-14.3); White Blood Cell 4.5 10^3/uL (4.4-10.8)
[2021-01-12 07:13] LABS: Albumin 3.2 g/dL (3.4-5.0); Calcium 8.2 mg/dL (8.5-10.1); Potassium 3.7 mmol/L (3.5-5.1)
[2021-01-12 07:15] LABS: BUN/Creatinine Ratio 9.4
[2021-01-12 07:18] LABS: Bilirubin, Total 0.9 mg/dL (0.2-1.0); Total Protein 6.7 g/dL (6.4-8.2)
[2021-01-12 09:22] VITALS: BP 119/84
[2021-01-12] MEDS ORDERED: CYANOCOBALAMIN 500 MCG TAB PO SCH (10:00)
[2021-01-12] MEDS: FAMOTIDINE 20 MG TAB PO SCH (10:53)
[2021-01-12] MEDS: FOLIC ACID 1 MG TAB PO SCH (10:53)
[2021-01-12] MEDS: MULTIPLE VITAMIN TAB PO SCH (10:53)
[2021-01-12] MEDS: ENOXAPARIN SOD 40 MG/0.4 ML SYRINGE SC SCH (10:53)
[2021-01-12] MEDS: ZINC SULFATE 220mg CAP or TAB PO SCH (10:54)
[2021-01-12] MEDS: ASCORBIC ACID 500 MG TAB PO SCH (10:54)
[2021-01-12] MEDS: THIAMINE HCL 100 MG TAB PO SCH (11:20)
[2021-01-12 13:07] VITALS: BP 125/81
[2021-01-12 16:51] VITALS: BP 107/91
== END 2021-01-12 18:10 | disposition home or self-care (01) | DRG 775 ==
LOC: ER 21:08 → TELE 21:09 → TELE-WESTW 01-10 08:30
PROVIDERS: ADMIT Nurse Practitioner Family; ATTEND Internal Medicine
DX: F10.230 Alcohol dependence with withdrawal, uncomplicated (principal); T42.6X5A Adverse effect of other antiepileptic and sedative-hypnotic drugs, initial encounter; E87.6 Hypokalemia; F41.9 Anxiety disorder, unspecified; R79.89 Other specified abnormal findings of blood chemistry; F32.9 Major depressive disorder, single episode, unspecified; D63.8 Anemia in other chronic diseases classified elsewhere; F41.0 Panic disorder [episodic paroxysmal anxiety]; Z20.822 Contact with and (suspected) exposure to COVID-19; G62.1 Alcoholic polyneuropathy; K70.30 Alcoholic cirrhosis of liver without ascites; Z79.899 Other long term (current) drug therapy; Z80.0 Family history of malignant neoplasm of digestive organs; Z81.8 Family history of other mental and behavioral disorders; Z87.891 Personal history of nicotine dependence; Y90.0 Blood alcohol level of less than 20 mg/100 ml
CPT/HCPCS: 36415; 71045; 76705; 80053; 80307; 80320; 81001; 82140; 83735; 84443; 84484; 85025; 87081; 87426; 93005; 96365; 96375; G0378

== ENCOUNTER 2021-12-27 19:18 | Emergency (ER) | payer MEDICAID ==
[~2021-12-27] VITALS: Ht 182.9 cm; Wt 70.3 kg
[2021-12-27 19:19] VITALS: BP 155/80
== END 2021-12-27 20:50 | disposition left against medical advice (07) ==
LOC: ER 19:20
DX: R07.89 Other chest pain (principal); R06.00 Dyspnea, unspecified
CPT/HCPCS: 71045; 93005